=== PATIENT | male | born 1945 | race Caucasian/White ===

== ENCOUNTER 2016-11-27 23:52 | Emergency (ER) | payer SELFPAY ==
[~2016-11-27] VITALS: Ht 177.8 cm; Wt 90.0 kg
[2016-11-28] MEDS ORDERED: SODIUM CHLORIDE 0.9% 1,000 ML IV ONE (00:43)
[2016-11-28] MEDS ORDERED: LORAZEPAM 2MG/ML CPJ IV ONE (00:45)
[2016-11-28] MEDS: LORAZEPAM 2MG/ML CPJ IM PRN ×2 (01:05→01:45)
[2016-11-28 01:07] LABS: BASOPHILS % 0.6 % (0.0-2.0); DIFFERENTIAL COMMENT 0; EOSINOPHILS % 1.8 % (0.0-5.0); HEMATOCRIT. 40.4 % (42.0-52.0); HEMOGLOBIN. 13.6 g/dL (14.0-18.0); LYMPHOCYTES % 27.5 % (20.0-50.0); MEAN CORPUSCULAR HGB CONC 33.8 g/dL (31.0-37.0); MEAN CORPUSCULAR VOLUME 100.6 fL (80.0-94.0); MEAN PLATELET VOLUME 7.1 fl (7.4-10.4); MONOCYTES % 12.8 % (2.0-8.0); NEUTROPHILS % 57.3 % (40.0-76.0); PLATELET 283 x1000/uL (130-400); RED BLOOD CELL COUNT 4.01 mill/uL (4.7-6.1); RED CELL DISTRIBUTION WIDTH 14.1 % (11.6-14.6); WHITE BLOOD COUNT 9.4 x1000/uL (4.5-11.0)
[2016-11-28 01:13] LABS: CHLORIDE 108 mEq/L (98-107); INDEX HEMOLYSI 1 (1-3); INDEX ICTERIC 1 (1-4); INDEX LIPEMIC 1 (1-3)
[2016-11-28 01:21] LABS: ACETAMINOPHEN < 2 ug/mL (10-30); ALANINE AMINOTRANSFERASE 19 IU/L (13-61); ALBUMIN 3.3 g/dL (3.4-5.0); ANION GAP 18; CALCIUM 8.7 mg/dL (8.5-10.1); CARBON DIOXIDE 25 mEq/L (21-32); UREA NITROGEN BLOOD 23 mg/dL (7-21); eGFR > 60 mL/min (>60)
[2016-11-28 01:22] LABS: INR 0.9; PROTHROMBIN TIME 9.5 sec
[2016-11-28 01:44] LABS: ETHANOL BLOOD 338 mg/dL
[2016-11-28] MEDS ORDERED: LORAZEPAM 2MG/ML CPJ IM ONE ×2 (01:45→02:45)
[2016-11-28 07:55] LABS: CLARITY URINE CLEAR (CLEAR); COLOR URINE YELLOW (YELLOW); GLUCOSE URINE NEGATIVE (NEGATIVE); KETONES URINE NEGATIVE (NEGATIVE); LEUKOCYTE ESTERASE URINE NEGATIVE (NEGATIVE); NITRITE URINE NEGATIVE (NEGATIVE); OCCULT BLOOD URINE NEGATIVE (NEGATIVE); PH URINE 5.5 (4.5-8.0); PROTEIN URINE NEGATIVE (NEGATIVE)
[2016-11-28 08:10] LABS: *AMPHETAMINES SCREEN URINE NEGATIVE (NEGATIVE); *BARBITURATES SCREEN URINE NEGATIVE (NEGATIVE); *BENZODIAZEPINES SCREEN URINE NEGATIVE (NEGATIVE); *COCAINE SCREEN URINE NEGATIVE (NEGATIVE); CANNABINOID URINE SCREEN NEGATIVE (NEGATIVE); ECSTASY MDMA SCREEN URINE NEGATIVE (NEGATIVE); METHADONE URINE SCREEN NEGATIVE (NEGATIVE); OPIATES URINE SCREEN NEGATIVE (NEGATIVE); PHENCYCLIDINE URINE SCREEN NEGATIVE (NEGATIVE)
[2016-11-28 10:12] VITALS: BP 142/84
== END 2016-11-28 11:32 | disposition home or self-care (01) ==
LOC: ER 23:53
DX: T51.0X1A Toxic effect of ethanol, accidental (unintentional), initial encounter (principal); G93.49 Other encephalopathy; R41.82 Altered mental status, unspecified
CPT/HCPCS: 36415; 70450; 72125; 80053; 80305; 80307; 80329; 81003; 85025; 85610; 96360; 96361; 96372; 99285; G0482; J2060; J7030

== ENCOUNTER 2017-11-02 12:46 | Emergency (ER) | payer MEDICARE, OTHER ==
[~2017-11-02] VITALS: Ht 172.7 cm; Wt 79.0 kg
[2017-11-02] MEDS ORDERED: ACETAMINOPHEN WITH CODEINE 300/30MG TABLET PO ONE (13:00)
[2017-11-02 13:28] LABS: BASOPHILS % 0.7 % (0.0-2.0); HEMATOCRIT. 35.2 % (42.0-52.0); MEAN CORPUSCULAR HEMOGLOBIN 38.6 pg (28.0-32.0); MEAN PLATELET VOLUME 7.3 fl (7.4-10.4); NEUTROPHILS % 49.3 % (40.0-76.0); PLATELET 270 x1000/uL (130-400); RED BLOOD CELL COUNT 3.12 mill/uL (4.7-6.1); RED CELL DISTRIBUTION WIDTH 15.7 % (11.6-14.6)
[2017-11-02 13:32] LABS: PROTHROMBIN TIME 10.6 sec (9.4-11.6)
[2017-11-02 13:37] LABS: CHLORIDE 103 mEq/L (98-107)
[2017-11-02 13:43] LABS: CREATINE KINASE 86 IU/L (39-308); ETHANOL BLOOD 202 mg/dL
[2017-11-02 14:08] LABS: PLATELET ESTIMATE NORMAL
[2017-11-02 16:25] VITALS: BP 141/81
== END 2017-11-02 16:46 | disposition home or self-care (01) ==
LOC: ER 14:03
DX: T51.0X1A Toxic effect of ethanol, accidental (unintentional), initial encounter (principal); R07.9 Chest pain, unspecified; F17.200 Nicotine dependence, unspecified, uncomplicated; R41.82 Altered mental status, unspecified; R51 Headache; I51.7 Cardiomegaly; M47.892 Other spondylosis, cervical region; J98.11 Atelectasis; N40.0 Benign prostatic hyperplasia without lower urinary tract symptoms; W01.0XXA Fall on same level from slipping, tripping and stumbling without subsequent striking against object, initial encounter
CPT/HCPCS: 36415; 70450; 71045; 72125; 80053; 82550; 84484; 85025; 85610; 93005; 99285; G0482